=== PATIENT | male | born 1970 | race Caucasian/White ===

== ENCOUNTER 2019-12-09 19:06 | Emergency (ER) | payer OTHER ==
[2019-12-09] MEDS ORDERED: IBUPROFEN 600 MG TABLET PO STA (19:27)
[2019-12-09] MEDS ORDERED: ACETAMINOPHEN 325 MG TABLET PO STA (19:27)
--- NOTE | 2019-12-09 19:29 | ED Physician Documentation ---
History of Present Illness - Stated complaint Stated Complaint: R SHOULDER/ARM PX - Chief complaint Chief Complaint: Ext Problem - Additonal information Additional information: This is a 49-year-old male with history of tobacco use, denies other past medical history, who presents with right shoulder pain. Patient was working on the exhaust of a car with his friend yesterday, but he denies any specific twisting or trauma to the shoulder. This morning at 1:30 AM he woke up with an ache in his right shoulder, and throughout the day it has radiated down somewhat towards his elbow. He denies numbness or weakness in his hand. The pain is worse when he lifts his arm up above 90 degrees and as he is lowering his arm down. He denies any neck pain. No other extremity pain. No chest pain, no shortness of breath. No history of cardiac problems. No fever. Review of Systems Constitutional: denies: Fever Cardiac: denies: Chest pain / pressure Respiratory: denies: Dyspnea Musculoskeletal: reports: Extremity pain Neurologic: denies: Focal weakness, Numbness PD PAST MEDICAL HISTORY - Present Medications Home Medications: Ambulatory Orders Medication Instructions Recorded Confirmed Cyclobenzaprine [Flexeril] 10 mg PO TID PRN #20 tablet 12/09/19 - Allergies Allergies/Adverse Reactions: Allergies Allergy/AdvReac Type Severity Reaction Status Date / Time No Known Drug Allergies Allergy Verified 12/09/19 19:10 PD ED PE NORMAL - Vitals Vital signs reviewed: Yes - General General: Alert and oriented X 3, No acute distress - HEENT HEENT: PERRL - Neck Neck: Supple, no meningeal sign - Cardiac Cardiac: RRR, No murmur - Respiratory Respiratory: No respiratory distress, Clear bilaterally - Abdomen Abdomen: Soft, Non tender, Non distended - Derm Derm: Warm and dry - Extremities Extremities: No calf tenderness / cord (Shoulders are symmetric in appearance. There is no redness or warmth of the right shoulder. There is some tenderness palpation over the posterior aspect of the shoulder, and to a lesser extent in the upper axilla. There is no lymphadenopathy. Patient is able to range his arm with full flexion, abduction, extension. Internal and external rotation are normal. With empty can testing patient has severe pain. There is no weakness with hand squeeze finger abduction or wrist extension. 5 out of 5 strength with elbow flexion extension. Sensation intact light touch over distribution of the median, radial, and ulnar nerves.), Other - Neuro Neuro: Alert and oriented X 3 - Psych Psych: Normal mood, Normal affect Results - Vitals Vitals: Vital Signs - 24 hr 12/09/19 12/09/19 19:10 20:45 Temperature 36.9 C Heart Rate 95 97 Respiratory 16 17 Rate Blood Pressure 137/85 H 138/87 H O2 Saturation 96 98 Oxygen O2 Source Room air - EKG (time done) 19:33 Other comments: Other comments (Rate 79, rhythm sinus, there is no ST segment elevation or depression, no abnormal T wave inversions, intervals within normal limits.) - Rads (name of study) XR R shoulder Radiology: Other (No acute osseous abnormality) PD MEDICAL DECISION MAKING - ED course Complexity details: considered differential (Rotator cuff strain, tear, tendinitis, muscle strain fracture, osteoarthritis, radiculopathy, ACS, Septic arthritis) ED course: Patient is well-appearing on examination, his shoulder pain began after using it performing work on a car, and does appear to be musculoskeletal given that it is reproducible with certain movements palpation. He has no chest pain or left shoulder pain and ACS is highly unlikely, EKG is unremarkable, further arguing against cardiac etiology of his shoulder pain. X-ray was obtained and shows no acute abnormality. He has no neck pain to suggest radiculopathy, and he is neurovascular intact with no strength or sensation deficits. He has no fever, good range of motion of the shoulder, no signs of septic arthritis. Given his symptoms and history appears that muscle strain or rotator cuff injury is possible, I discussed supportive care, ibuprofen, rest, primary care follow-up and return to the emergency department with any worsening. I prescribed him a small number of Flexeril to try at home for the discomfort as well. Patient agrees with this plan and was discharged home in good condition Departure - Departure Disposition: 01 Home, Self Care Clinical Impression: Shoulder pain, right Qualifiers: Chronicity: acute Qualified Code(s): M25.511 - Pain in right shoulder Condition: Good Prescriptions: Cyclobenzaprine [Flexeril] 10 mg PO TID PRN #20 tablet PRN Reason: Spasms Comments: You were seen today for shoulder pain. Your x-ray did not show signs of any obvious abnormalities of the bones, and your EKG is reassuring. I think you m ost likely have a strain of the muscles or tendons around the shoulder. Please try ibuprofen 600 mg every 6 hours, Tylenol 650 mg every 6 hours, ice the shoulder, rested prevent any strain on it until it is feeling better. You may also try the Flexeril which is a muscle relaxant. If you are having worsening symptoms such as chest pain, trouble breathing, fever, redness or swelling around the shoulder, or any other concerning symptoms return to the emergency department. Otherwise please follow-up with your primary care provider in the next week and less you are having resolution of your symptoms. Forms: Activity restrictions Discharge Date/Time: 12/09/19 20:45
--- NOTE | 2019-12-09 20:02 | XRAY Report ---
Reason: Shoulder pain Procedure Date: 12/09/2019 Accession Number: [id number] / [id number] Procedure: XR - Shoulder 3 View RT CPT Code: Final Report FULL RESULT: EXAM: RIGHT SHOULDER RADIOGRAPHY EXAM DATE: 12/09/2019 07:55 PM. CLINICAL HISTORY: Shoulder pain. COMPARISON: None. TECHNIQUE: 3 views. FINDINGS: Bones: Normal. No fracture or bone lesion. Joints: The glenohumeral and acromioclavicular joints are normal. Soft tissues: The visualized hemithorax is unremarkable. No soft tissue swelling. IMPRESSION: Normal shoulder radiography. [facility]
[2019-12-09] MEDS ORDERED: CYCLOBENZAPRINE 10 MG Prepack 2 PO PRN (20:38)
[2019-12-09 20:46] VITALS: BP 138/87
== END 2019-12-09 20:45 | disposition home or self-care (01) ==
LOC: ED 19:06
DX: M25.511 Pain in right shoulder (principal); F17.200 Nicotine dependence, unspecified, uncomplicated
CPT/HCPCS: 73030; 93005; 99283; 99284; A9270